=== PATIENT | male | born 1945 | race Caucasian/White ===

== ENCOUNTER → 2020-11-19 | Outpatient (CLI) | payer MEDICARE, OTHER ==
--- NOTE | 2020-11-19 14:10 | RAD ---
EXAM: Left knee, 3 views. HISTORY: Pain. COMPARISON: None. FINDINGS: 3 views of the left knee are obtained. There is no fracture, dislocation or subluxation. Th ere is a small suspected joint loose body within the medial compartment. There is no joint effusion. There is a small ossicle or benign osseous excrescence along the femoral condyle. IMPRESSION: Suspected small joint loose body. No acute osseous finding. Electronically signed by: Hillary Pandya MD (11/19/2020 2:07 PM) [id number]
== END ==
LOC: DXRAD 13:42
PROVIDERS: ATTEND Nurse Practitioner Family
DX: M25.562 Pain in left knee (principal)
CPT/HCPCS: 73562